=== PATIENT | female | born 1980 | race African-American/Black ===

== ENCOUNTER 2018-06-07 17:28 | Inpatient (IN) | payer MEDICAID ==
[2018-06-07] MEDS ORDERED: NORMAL SALINE INJ/PF 0.9% 10 ML SDV IV ONE (17:55)
[2018-06-07] MEDS ORDERED: METOCLOPRAMIDE HCL INJ/PF 10 MG/2 ML SDV IV ONE (17:55)
[2018-06-07] MEDS ORDERED: KETOROLAC TROMETHAMINE INJ/PF 30 MG/1 ML SDV IV ONE (17:55)
--- NOTE | 2018-06-07 18:01 | ER Document Report ---
ED Medical Screen (RME) - General Chief Complaint: Abdominal Pain Stated Complaint: FEVER/ ABDOMINAL PAIN Time Seen by Provider: 06/07/18 17:54 Mode of Arrival: Ambulatory TRAVEL OUTSIDE OF THE [place] IN LAST 30 DAYS: No - HPI Patient complains to provider of: abd pain Onset: Other - pt with h/o pancreatitis with 2 day h/o abdomoinal pain - Related Data Allergies/Adverse Reactions: No Known Allergies Allergy (Verified 06/07/18 17:30) Past Medical History - Social History Chew tobacco use (# tins/day): No Frequency of alcohol use: Occasional Drug Abuse: None - Past Medical History Cardiac Medical History: Reports: Hx Hypertension Denies: Hx Congestive Heart Failure, Hx Heart Attack, Hx Heart Murmur Pulmonary Medical History: Reports: Hx Asthma, Hx Bronchitis Denies: Hx COPD, Hx Pneumonia, Hx Tuberculosis Neurological Medical History: Denies: Hx Seizures Renal/ Medical History: Denies: Hx End Stage Renal Disease, Hx Kidney Stones, Hx Peritoneal Dialysis GI Medical History: Denies: Hx Cirrhosis, Hx Gastroesophageal Reflux Disease, Hx Hiatal Hernia, Hx Ulcer Musculoskeltal Medical History: Denies Hx Arthritis, Denies Hx Multiple Sclerosis Psychiatric Medical History: Denies: Hx Bipolar Disorder, Hx Depression, Hx Schizophrenia Past Surgical History: Reports: Hx Section. Denies: Hx Pacemaker - Immunizations Hx Diphtheria, Pertussis, Tetanus Vaccination: Yes Physical Exam - Vital signs Vitals: Temp Pulse Resp BP Pulse Ox 97.9 F 121 H 20 150/110 H 99 06/07/18 17:33 06/07/18 17:33 06/07/18 17:33 06/07/18 17:33 06/07/18 17:33 Course - Vital Signs Vital signs: Temp Pulse Resp BP Pulse Ox 97.9 F 121 H 20 150/110 H 99 06/07/18 17:33 06/07/18 17:33 06/07/18 17:33 06/07/18 17:33 06/07/18 17:33 Doctor's Discharge - Discharge Referrals: ZOILA BELL DO [Primary Care Provider] - Follow up as needed
[2018-06-07 18:53] LABS: APPEARANCE,URINE SLIGHTLY-CLOUDY; BILIRUBIN,URINE NEGATIVE (NEGATIVE); COLOR,URINE AMBER; GLUCOSE, URINE 50 mg/dL (NEGATIVE); KETONES,URINE TRACE mg/dL (NEGATIVE); LEUKOCYTE ESTERASE,URINE NEGATIVE (NEGATIVE); NITRITE,URINE NEGATIVE (NEGATIVE); PROTEIN,URINE >=500 mg/dL (NEGATIVE)
[2018-06-07] MEDS ORDERED: NORMAL SALINE 1000 ML 1,000 ML IV ONE ×2 (19:08→19:38)
[2018-06-07 19:11] LABS: ABSOLUTE LYMPHOCYTES (AUTO) 1.1 10^3/uL (0.5-4.7); ABSOLUTE MONOCYTES (AUTO) 0.3 10^3/uL (0.1-1.4); ABSOLUTE NEUT (AUTO) 8.6 10^3/uL (1.7-8.2); BASOPHILS % (AUTO) 0.5 % (0-2); EOSINOPHILS % (AUTO) 0.1 % (0-6); HEMATOCRIT 49.1 % (36.0-47.0); HEMOGLOBIN 17.2 g/dL (12.0-15.5); MEAN CORPUSCULAR HEMOGLOBIN 33.2 pg (27.0-33.4); MEAN CORPUSCULAR VOLUME 95 fl (80-97); MONOCYTES % (AUTO) 3.1 % (3-13); PLATELET COUNT 193 10^3/uL (150-450); RED BLOOD COUNT 5.18 10^6/uL (3.72-5.28); RED CELL DISTRIBUTION WIDTH 12.6 % (11.5-14.0); SEGMENTED NEUTROPHILS % (AUTO) 85.3 % (42-78); TOTAL CELLS COUNTED % (AUTO) 100 %; WHITE BLOOD COUNT 10.1 10^3/uL (4.0-10.5)
[2018-06-07 19:26] LABS: ALANINE AMINOTRANSFERASE 139 U/L (9-52); ALBUMIN 4.8 g/dL (3.5-5.0); ALKALINE PHOSPHATASE 131 U/L (38-126); ASPARTATE AMINO TRANSFERASE 275 U/L (14-36); BILIRUBIN,DIRECT 0.6 mg/dL (0.0-0.4); BLOOD UREA NITROGEN 15 mg/dL (7-20); CALCIUM 9.9 mg/dL (8.4-10.2); GLUCOSE 120 mg/dL (75-110); POTASSIUM 4.1 mmol/L (3.6-5.0); TOTAL PROTEIN 8.6 g/dL (6.3-8.2)
[2018-06-07 19:31] LABS: CARBON DIOXIDE 21 mmol/L (22-30); CHLORIDE 99 mmol/L (98-107); SODIUM 139.8 mmol/L (137-145)
[2018-06-07] MEDS ORDERED: MORPHINE SULFATE 10 MG/ML INJ IV PRN (19:33)
[2018-06-07] MEDS ORDERED: MAG HYDROX/AL HYDROX/SIMETH SUSP 30 ML UDCUP PO ONE (19:34)
[2018-06-07] MEDS ORDERED: FAMOTIDINE 20 MG TABLET PO ONE (19:34)
[2018-06-07] MEDS ORDERED: METOCLOPRAMIDE HCL ORAL SOLN 10 MG/10 ML UDCUP PO ONE (19:34)
[2018-06-07] MEDS ORDERED: LIDOCAINE 2% VISCOUS SOLN 20 ML UDCUP PO ONE (19:34)
[2018-06-07 19:36] LABS: ANION GAP 20 (5-19); LIPASE 3140.4 U/L (23-300)
--- NOTE | 2018-06-07 19:39 | ER Document Report ---
ED General - General Chief Complaint: Abdominal Pain Stated Complaint: FEVER/ ABDOMINAL PAIN Time Seen by Provider: 06/07/18 17:54 Mode of Arrival: Ambulatory Notes: Patient is a 37-year-old female with a previous history of alcoholic pancreatitis who presents with 3 days of epigastric abdominal pain with associated nausea and vomiting. She reports that she has been unable to tolerate oral intake since the onset of her pain. She does describe this is a stabbing, constant, severe pain to her upper abdomen that radiates through to her back. Nothing improves or worsens her pain. She does state that this is similar to when she has had pancreatitis in the past. She has not seen her general doctor regarding today's concerns. Contrary to initial triage assessment the patient denies any history of fever. She states that her last alcoholic beverage was 1 week ago. TRAVEL OUTSIDE OF THE [place] IN LAST 30 DAYS: No - Related Data Allergies/Adverse Reactions: No Known Allergies Allergy (Verified 06/07/18 17:30) Past Medical History - General Information source: Patient - Social History Smoking Status: Never Smoker Chew tobacco use (# tins/day): No Frequency of alcohol use: Occasional Drug Abuse: None Lives with: Spouse/Significant other Family History: Reviewed & Not Pertinent Patient has suicidal ideation: No Patient has homicidal ideation: No - Past Medical History Cardiac Medical History: Reports: Hx Hypertension Denies: Hx Congestive Heart Failure, Hx Heart Attack, Hx Heart Murmur Pulmonary Medical History: Reports: Hx Asthma, Hx Bronchitis Denies: Hx COPD, Hx Pneumonia, Hx Tuberculosis Neurological Medical History: Denies: Hx Seizures Renal/ Medical History: Denies: Hx End Stage Renal Disease, Hx Kidney Stones, Hx Peritoneal Dialysis GI Medical History: Denies: Hx Cirrhosis, Hx Gastroesophageal Reflux Disease, Hx Hiatal Hernia, Hx Ulcer Musculoskeletal Medical History: Denies Hx Arthritis, Denies Hx Multiple Sclerosis Psychiatric Medical History: Denies: Hx Bipolar Disorder, Hx Depression, Hx Schizophrenia Past Surgical History: Reports: Hx Section. Denies: Hx Pacemaker - Immunizations Hx Diphtheria, Pertussis, Tetanus Vaccination: Yes Review of Systems - Review of Systems Notes: Constitutional: Negative for fever. HENT: Negative for sore throat. Eyes: Negative for visual changes. Cardiovascular: Negative for chest pain. Respiratory: Negative for shortness of breath. Gastrointestinal: Positive for abdominal pain and vomiting Genitourinary: Negative for dysuria. Musculoskeletal: Negative for back pain. Skin: Negative for rash. Neurological: Negative for headaches, weakness or numbness. 10 point ROS negative except as marked above and in HPI. Physical Exam - Vital signs Vitals: Temp Pulse Resp BP Pulse Ox 97.9 F 121 H 20 150/110 H 99 06/07/18 17:33 06/07/18 17:33 06/07/18 17:33 06/07/18 17:33 06/07/18 17:33 Interpretation: Tachycardic Notes: PHYSICAL EXAMINATION: GENERAL: Appears moderately uncomfortable but in no acute distress HEAD: Atraumatic, normocephalic. EYES: Pupils equal round and reactive to light, extraocular movements intact, sclera anicteric, conjunctiva are normal. ENT: nares patent, oropharynx clear without exudates. Moderately dry mucous membranes. NECK: Normal range of motion, supple without lymphadenopathy LUNGS: Breath sounds clear to auscultation bilaterally and equal. No wheezes rales or rhonchi. HEART: Regular tachycardia without murmurs ABDOMEN: Soft, diffuse upper abdominal tenderness most focal to the epigastrium , normoactive bowel sounds. No guarding, no rebound. No masses appreciated. EXTREMITIES: Normal range of motion, no pitting or edema. No cyanosis. NEUROLOGICAL: No focal neurological deficits. Moves all extremities spontaneously and on command. PSYCH: Normal mood, normal affect. SKIN: Warm, Dry, normal turgor, no rashes or lesions noted. 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 Her initial vitals showed tachycardia although contrary to triage assessment the patient did not have a fever and she denies this complaint. She does appear to be in significant discomfort time of my assessment. Palpation of her epigastrium results in severe pain although she has minimal tenderness of the right upper quadrant. Will proceed with a right upper quadrant ultrasound to evaluate for the possibility of a gallstone induced pancreatitis. Her labs are not consistent with a choledocholithiasis at this time point as she does have a transaminitis although her bilirubin is effectively normal. Will await ultrasound and then reassess the patient. 06/07/18 21:57 Right upper quadrant ultrasound without any evidence of gallstones to suggest a gallstone induced pancreatitis. Will discuss with the hospitalist for admission. 06/07/18 22:07 I have updated the patient who continues to have pain despite receiving IV narcotics. I have discussed with Dr. Coats who has accepted the patient for admission. - Vital Signs Vital signs: Temp Pulse Resp BP Pulse Ox 98.5 F 93 18 152/95 H 100 06/08/18 00:50 06/08/18 00:50 06/08/18 00:50 06/08/18 00:50 06/08/18 00:50 - Laboratory Result Diagrams: 06/07/18 18:45 06/07/18 18:45 Laboratory results interpreted by me: 06/07/18 06/07/18 06/07/18 18:10 18:45 18:45 Hgb 17.2 H Hct 49.1 H Seg Neutrophils % 85.3 H Lymphocytes % 11.0 L Absolute Neutrophils 8.6 H Carbon Dioxide 21 L Anion Gap 20 H Glucose 120 H Total Bilirubin 2.0 H Direct Bilirubin 0.6 H AST 275 H ALT 139 H Alkaline Phosphatase 131 H Total Protein 8.6 H Lipase 3140.4 H Urine Protein >=500 H Urine Glucose (UA) 50 H Urine Ketones TRACE H Urine Blood SMALL H Urine Urobilinogen 2.0 H - Diagnostic Test Radiology reviewed: Reports reviewed Discharge - Discharge Clinical Impression: Acute pancreatitis Qualifiers: Pancreatitis type: alcohol induced Acute pancreatitis complication: unspecified Qualified Code(s): K85.20 - Alcohol induced acute pancreatitis without necrosis or infection Nausea and vomiting Qualifiers: Vomiting type: unspecified Vomiting Intractability: non-intractable Qualified Code(s): R11.2 - Nausea with vomiting, unspecified Condition: Fair Disposition: ADMITTED INPATIENT Admitting Provider: Hospitalist Unit Admitted: Medical Floor
[2018-06-07 19:40] LABS: VENOUS BLOOD BASE EXCESS -4.2 mmol/L; VENOUS BLOOD HCO3 20.1 mmol/L (20-32); VENOUS BLOOD PCO2 35.2 mmHg (35-63); VENOUS BLOOD PH 7.38 (7.30-7.42)
[2018-06-07] MEDS: MORPHINE SULFATE 10 MG/ML INJ IV PRN ×2 (19:52→22:22)
[2018-06-07 20:24] LABS: ALCOHOL < 10 mg/dL (NONE DETECTED)
--- NOTE | 2018-06-07 21:02 | RADIOLOGY REPORT (SQ) ---
EXAM DESCRIPTION: U/S ABDOMEN LIMITED W/O DOP COMPLETED DATE/TIME: 06/07/2018 8:51 pm REASON FOR STUDY: uper abdominal pain, vomiting COMPARISON: None. TECHNIQUE: Dynamic and static grayscale images acquired of the abdomen and recorded on PACS. Additio bud selected color Doppler and spectral images recorded. LIMITATIONS: None. FINDINGS: PANCREAS: No masses. Visualized pancreatic duct normal caliber. LIVER: No masses. Echotexture normal. LIVER VASCULATURE: Normal directional flow of the main portal vein and hepatic veins. GALLBLADDER: No stones. Normal wall thickness. No pericholecystic fluid. ULTRASOUND-DETECTED CLIFFORD'S SIGN: Negative. INTRAHEPATIC DUCTS AND COMMON DUCT: CBD and intrahepatic ducts normal caliber. No filling defects. INFERIOR VENA CAVA: Normal flow. AORTA: No aneurysm. RIGHT KIDNEY: Normal size. Normal echogenicity. No solid or suspicious masses. No hydronephrosis. No calcifications. PERITONEAL AND RIGHT PLEURAL SPACE: No ascites or effusions. OTHER: No other significant findings. IMPRESSION: NORMAL RIGHT UPPER QUADRANT ULTRASOUND. TECHNICAL DOCUMENTATION: JOB ID: [id number] [employer]- All Rights Reserved Reading location - IP/workstation name: [email or web address]
[2018-06-07] MEDS ORDERED: PROMETHAZINE HCL 25 MG SUPP.RECT PR PRN (22:08)
[2018-06-07] MEDS ORDERED: LORAZEPAM INJ 2 MG/1 ML VIAL IV PRN (22:08)
[2018-06-07] MEDS ORDERED: ACETAMINOPHEN 325 MG TABLET PO PRN (22:08)
[2018-06-07] MEDS ORDERED: MAG HYDROX/AL HYDROX/SIMETH SUSP 30 ML UDCUP PO PRN (22:08)
[2018-06-07] MEDS ORDERED: IPRATROPIUM/ALBUTEROL 0.5-2.5 MG/3 ML AMPUL NEB PRN (22:08)
[2018-06-07] MEDS: NORMAL SALINE 1000 ML 1,000 ML IV SCH (22:53)
[2018-06-08] MEDS: NORMAL SALINE 1000 ML 1,000 ML IV SCH ×2 (00:22→07:56)
[2018-06-08] MEDS: KETOROLAC TROMETHAMINE INJ/PF 30 MG/1 ML SDV IV PRN ×4 (00:22→20:41)
--- NOTE | 2018-06-08 06:03 | PDOC H&P ---
History of Present Illness Admission Date/PCP: 06/07/18 22:25 Patient complains of: Epigastric pain History of Present Illness: OLGA PAUL is a 37 year old female with a past medical history of alcohol-related pancreatitis and hypertension. Patient presents with 24 hours of epigastric pain associated with nausea without vomiting and unable to tolerate p.o. which exacerbate symptoms. Pain is alleviated somewhat by sitting forward. In the emergency room she is found to have a lipase of 3140, elevated LFTs but unremarkable left upper quadrant ultrasound. She receives IV fluids symptomatic management referred to the hospitalist for admission. She admits alcohol use and previous episode 2014. Past Medical History Cardiac Medical History: Reports: Hypertension Denies: Congestive Heart Failure, Myocardial Infarction, Heart Murmur Pulmonary Medical History: Reports: Asthma, Bronchitis Denies: Chronic Obstructive Pulmonary Disease (COPD), Pneumonia, Tuberculosis Neurological Medical History: Denies: Seizures Renal/ Medical History: Denies: End Stage Renal Disease GI Medical History: Denies: Cirrhosis, Gastroesophageal Reflux Disease, Hiatal Hernia Musculoskeltal Medical History: Denies: Arthritis Psychiatric Medical History: Denies: Bipolar Disorder, Depression Hematology: Denies: Anemia, Bleeding Tendencies Past Surgical History Past Surgical History: Reports: Section Denies: Pacemaker Social History Lives with: Spouse/Significant other Smoking Status: Never Smoker Frequency of Alcohol Use: Occasional Hx Recreational Drug Use: No Hx Prescription Drug Abuse: No - Advance Directive Resuscitation Status: Full Code Family History Family History: DM Parental Family History Reviewed: Yes Children Family History Reviewed: Yes Sibling(s) Family History Reviewed.: Yes Medication/Allergy Home Medications: Methyldopa [Aldomet 250 mg Tablet] 500 mg PO DAILY 03/17/16 Vit Calc,Iron,Folic [ Vitamins] 1 tab PO DAILY 03/17/16 Ibuprofen [Motrin 800 mg Tablet] 800 mg PO Q6 #60 tablet 03/22/16 Methyldopa [Aldomet 250 mg Tablet] 500 mg PO DAILY #60 tablet 03/22/16 Oxycodone HCl/Acetaminophen [Percocet 5-325 mg Tablet] 1 tab PO Q4HP PRN #30 tablet 03/22/16 Allergies/Adverse Reactions: No Known Allergies Allergy (Verified 06/07/18 17:30) Review of Systems Constitutional: ABSENT: chills, fever(s), headache(s), weight gain, weight loss Eyes: ABSENT: visual disturbances Ears: ABSENT: hearing changes Cardiovascular: ABSENT: chest pain, dyspnea on exertion, edema, orthropnea, palpitations Respiratory: ABSENT: cough, hemoptysis Gastrointestinal: ABSENT: abdominal pain, constipation, diarrhea, hematemesis, hematochezia, nausea, vomiting Genitourinary: ABSENT: dysuria, hematuria Musculoskeletal: ABSENT: joint swelling Integumentary: ABSENT: rash, wounds Neurological: ABSENT: abnormal gait, abnormal speech, confusion, dizziness, focal weakness, syncope Psychiatric: ABSENT: anxiety, depression, homidical ideation, suicidal ideation Endocrine: ABSENT: cold intolerance, heat intolerance, polydipsia, polyuria Hematologic/Lymphatic: ABSENT: easy bleeding, easy bruising Physical Exam Vital Signs: Temp Pulse Resp BP Pulse Ox 98.4 F 88 15 151/96 H 100 06/08/18 04:50 06/08/18 04:50 06/08/18 04:50 06/08/18 04:50 06/08/18 04:50 Intake & Output 06/06/18 06/07/18 06/08/18 11:59 11:59 11:59 Weight 89.5 kg General appearance: PRESENT: cooperative, mild distress, well-developed, well- nourished. ABSENT: disheveled Head exam: PRESENT: atraumatic, normocephalic Eye exam: PRESENT: conjunctiva pink, EOMI, PERRLA. ABSENT: scleral icterus Ear exam: PRESENT: normal external ear exam Mouth exam: PRESENT: moist, tongue midline Neck exam: ABSENT: carotid bruit, JVD, lymphadenopathy, thyromegaly Respiratory exam: PRESENT: clear to auscultation camila. ABSENT: rales, rhonchi, wheezes Cardiovascular exam: PRESENT: RRR. ABSENT: diastolic murmur, rubs, systolic murmur Pulses: PRESENT: normal dorsalis pedis pul Vascular exam: PRESENT: normal capillary refill GI/Abdominal exam: PRESENT: hyperactive bowel sounds, normal bowel sounds, soft , tenderness. ABSENT: distended, guarding, mass, organolmegaly, rebound Rectal exam: PRESENT: deferred Extremities exam: PRESENT: full ROM. ABSENT: calf tenderness, clubbing, pedal edema Neurological exam: PRESENT: alert, awake, oriented to person, oriented to place , oriented to time, oriented to situation, CN II-XII grossly intact. ABSENT: motor sensory deficit Psychiatric exam: PRESENT: appropriate affect, normal mood. ABSENT: homicidal ideation, suicidal ideation Skin exam: PRESENT: dry, intact, warm. ABSENT: cyanosis, rash Results Impressions: Abdomen Ultrasound 06/07/18 19:34 IMPRESSION: NORMAL RIGHT UPPER QUADRANT ULTRASOUND. Assessment & Plan - Diagnosis (1) Acute pancreatitis Qualifiers: Pancreatitis type: alcohol induced Acute pancreatitis complication: unspecified Qualified Code(s): K85.20 - Alcohol induced acute pancreatitis without necrosis or infection Is this a current diagnosis for this admission?: Yes Plan: Secondary to alcohol use, symptomatic management, IV fluid challenge, bowel rest. Follow-up chemistry (2) LFT elevation Is this a current diagnosis for this admission?: Yes Plan: Likely secondary to #1, right upper quadrant ultrasound unremarkable. Repeat LFTs in 2 weeks (3) Nausea and vomiting Qualifiers: Vomiting type: unspecified Vomiting Intractability: non-intractable Qualified Code(s): R11.2 - Nausea with vomiting, unspecified Is this a current diagnosis for this admission?: Yes Plan: Secondary to #1, systematic management (4) Alcohol abuse Is this a current diagnosis for this admission?: Yes Plan: Education, thiamine and folate, as needed Ativan - Time Time Spent: 50 to 70 Minutes - Inpatient Certification Medical Necessity: Need Close Monitoring Due to Risk of Patient Decompensation
[2018-06-08] MEDS: HEPARIN SOD (PORCINE) 5,000 UNIT/ML 1 ML SYRINGE SUBCUT SCH ×3 (06:30→21:33)
[2018-06-08] MEDS ORDERED: HYDRALAZINE HCL INJ/PF 20 MG/1 ML SDV IV PRN (06:44)
[2018-06-08 06:55] LABS: ABSOLUTE BASOPHILS # (AUTO) 0.1 10^3/uL (0.0-0.2); ABSOLUTE EOSINOPHILS # (AUTO) 0.1 10^3/uL (0.0-0.6); ABSOLUTE LYMPHOCYTES (AUTO) 1.5 10^3/uL (0.5-4.7); ABSOLUTE MONOCYTES (AUTO) 0.4 10^3/uL (0.1-1.4); ABSOLUTE NEUT (AUTO) 5.5 10^3/uL (1.7-8.2); BASOPHILS % (AUTO) 0.7 % (0-2); EOSINOPHILS % (AUTO) 1.8 % (0-6); HEMATOCRIT 38.1 % (36.0-47.0); LYMPHOCYTES % (AUTO) 19.9 % (13-45); MEAN CORPUSCULAR HEMOGLOBIN 33.4 pg (27.0-33.4); MEAN CORPUSCULAR VOLUME 95 fl (80-97); MONOCYTES % (AUTO) 5.8 % (3-13); PLATELET COUNT 118 10^3/uL (150-450); SEGMENTED NEUTROPHILS % (AUTO) 71.8 % (42-78); TOTAL CELLS COUNTED % (AUTO) 100 %; WHITE BLOOD COUNT 7.7 10^3/uL (4.0-10.5)
[2018-06-08 07:01] LABS: ALANINE AMINOTRANSFERASE 81 U/L (9-52); ALBUMIN 3.3 g/dL (3.5-5.0); ALKALINE PHOSPHATASE 83 U/L (38-126); ANION GAP 11 (5-19); ASPARTATE AMINO TRANSFERASE 139 U/L (14-36); BILIRUBIN,DIRECT 0.5 mg/dL (0.0-0.4); BILIRUBIN,TOTAL 1.4 mg/dL (0.2-1.3); BLOOD UREA NITROGEN 8 mg/dL (7-20); CALCIUM 7.8 mg/dL (8.4-10.2); CARBON DIOXIDE 23 mmol/L (22-30); CHLORIDE 108 mmol/L (98-107); CHOLESTEROL 105.48 mg/dL (0-200); GLUCOSE 103 mg/dL (75-110); POTASSIUM 3.7 mmol/L (3.6-5.0); SODIUM 142.3 mmol/L (137-145); TOTAL PROTEIN 6.2 g/dL (6.3-8.2); TRIGLYCERIDES 108 mg/dL (<150)
[2018-06-08 07:02] LABS: HEMOGLOBIN 13.3 g/dL (12.0-15.5)
[2018-06-08 07:15] LABS: DIRECT LDL < 30 mg/dL (<100)
[2018-06-08] MEDS: THIAMINE HCL 100 MG, FOLIC ACID 1 MG in NORMAL SALINE 250 ML IV SCH (10:36)
[2018-06-08] MEDS ORDERED: LISINOPRIL 10 MG TABLET PO ONE (17:30)
--- NOTE | 2018-06-08 21:17 | PDOC PROGRESS REPORT ---
Subjective Progress Note for:: 06/08/18 Subjective:: 37 y.o. F with a PMH ETOH pancreatitis and HTN presented to [facility] with abdominal pain. She admits to drinking 3 glasses of wine approximately 1 week prior to arrival. Patient seen this morning on rounds. She is resting comfortably in bed on room air. The patient is A&O x 3 and able to answer all questions appropriately without pause. She endorses very mild R/L upper abdominal pain. Denies nausea or vomiting. Upon assessment, the patient's abdomen is TTP in the epigastric area. (+) bowel sounds. S1S2. Lungs clear to auscultation. Reason For Visit: ALCOHOLIC PANCREATITIS Physical Exam Vital Signs: Temp Pulse Resp BP Pulse Ox 99.4 F 90 19 161/93 H 100 06/08/18 19:44 06/08/18 19:44 06/08/18 19:44 06/08/18 19:44 06/08/18 19:44 Intake & Output 06/07/18 06/08/18 06/09/18 06:59 06:59 06:59 Intake Total 1500 2180 Output Total 900 Balance 1500 1280 Weight 89.5 kg General appearance: PRESENT: no acute distress Eye exam: PRESENT: conjunctiva pink, PERRLA Mouth exam: PRESENT: moist Neck exam: PRESENT: full ROM Respiratory exam: PRESENT: clear to auscultation camila, symmetrical, unlabored Cardiovascular exam: PRESENT: +S1, +S2 Pulses: PRESENT: normal radial pulses, normal dorsalis pedis pul GI/Abdominal exam: PRESENT: normal bowel sounds, soft, tenderness. ABSENT: distended, rigid Rectal exam: PRESENT: deferred Extremities exam: PRESENT: full ROM Musculoskeletal exam: PRESENT: ambulatory, full ROM Neurological exam: PRESENT: alert, awake, oriented to person, oriented to place , oriented to time, oriented to situation Psychiatric exam: PRESENT: appropriate affect Skin exam: PRESENT: dry, intact, normal color Results Laboratory Results: 06/08/18 05:50 06/08/18 05:50 06/08/18 06/08/18 05:50 05:50 WBC 7.7 RBC 4.00 Hgb 13.3 D Hct 38.1 MCV 95 MCH 33.4 MCHC 35.0 RDW 13.0 Plt Count 118 L Seg Neutrophils % 71.8 Lymphocytes % 19.9 Monocytes % 5.8 Eosinophils % 1.8 Basophils % 0.7 Absolute Neutrophils 5.5 Absolute Lymphocytes 1.5 Absolute Monocytes 0.4 Absolute Eosinophils 0.1 Absolute Basophils 0.1 Sodium 142.3 Potassium 3.7 Chloride 108 H Carbon Dioxide 23 Anion Gap 11 BUN 8 Creatinine 0.65 Est GFR ( Amer) > 60 Est GFR (Non-Af Amer) > 60 Glucose 103 Calcium 7.8 L Total Bilirubin 1.4 H AST 139 H ALT 81 H Alkaline Phosphatase 83 Total Protein 6.2 L Albumin 3.3 L Triglycerides 108 Cholesterol 105.48 LDL Cholesterol Direct < 30 VLDL Cholesterol 22.0 HDL Cholesterol 53 Impressions: Abdomen Ultrasound 06/07/18 19:34 IMPRESSION: NORMAL RIGHT UPPER QUADRANT ULTRASOUND. Status: Imported from PACS Assessment & Plan - Diagnosis (1) Acute pancreatitis Qualifiers: Pancreatitis type: alcohol induced Acute pancreatitis complication: unspecified Qualified Code(s): K85.20 - Alcohol induced acute pancreatitis without necrosis or infection Is this a current diagnosis for this admission?: Yes Plan: History of pancreatitis secondary to alcohol use Admits to drinking 1 glass of wine every other day. Recently had 3 glasses of wine in one sitting Initial Lipase 3140, plan to recheck in AM Patient reports she is hungry, will advance diet to clear liquids today Tylenol, toradol, morphine for pain (2) LFT elevation Is this a current diagnosis for this admission?: Yes Plan: Tramsaminitis Improved today No evidence of liver failure Abdominal US normal (3) Alcohol abuse Is this a current diagnosis for this admission?: Yes Plan: Patient admits to drinking 1 glass of wine every other night. States she thinks her flare up is related to drinking 3 glasses of wine in one sitting approx. 1 week prior to admission Patient expresses strong interest in giving up ETOH in order to avoid hospitalization Continue Thiamine and Folic Acid (4) HTN (hypertension) Qualifiers: Hypertension type: essential hypertension Qualified Code(s): I10 - Essential (primary) hypertension Is this a current diagnosis for this admission?: Yes Plan: patient endorses history of HTN, states she was prescribed lisinopril but has not started taking Initiate Lisinopril 10mg PO daily IV Hydralazine 10mg PRN for SBP > 170 - Time Time Spent with patient: 15-24 minutes Medications reviewed and adjusted accordingly: Yes Anticipated discharge: Home Within: within 48 hours - Inpatient Certification Based on my medical assessment, after consideration of the patient's comorbidities, presenting symptoms, or acuity I expect that the services needed warrant INPATIENT care.: Yes I certify that my determination is in accordance with my understanding of Medicare's requirements for reasonable and necessary INPATIENT services [42 CFR 412.3e].: Yes Medical Necessity: Risk of Complication if Not Cared For in Hospital - Plan Summary Plan Summary: CONTINUE THIAMINE AND FOLATE. ADVANCE DIET TODAY. INITIATE ANTIHYPERTENSIVE MEDICATION. IF PATIENT ABLE TO TOLERATE DIET, PLAN TO DISCHARGE HOME TOMORROW.
[2018-06-09] MEDS: KETOROLAC TROMETHAMINE INJ/PF 30 MG/1 ML SDV IV PRN ×4 (02:12→20:21)
[2018-06-09] MEDS: HEPARIN SOD (PORCINE) 5,000 UNIT/ML 1 ML SYRINGE SUBCUT SCH ×3 (05:14→21:49)
[2018-06-09 05:27] LABS: HEMATOCRIT 36.8 % (36.0-47.0); MEAN CORPUSCULAR HEMOGLOBIN 33.3 pg (27.0-33.4); MEAN CORPUSCULAR HGB CONC 35.2 g/dL (32.0-36.0); MEAN CORPUSCULAR VOLUME 95 fl (80-97); PLATELET COUNT 100 10^3/uL (150-450); RED BLOOD COUNT 3.89 10^6/uL (3.72-5.28); WHITE BLOOD COUNT 7.7 10^3/uL (4.0-10.5)
[2018-06-09 05:40] LABS: ANION GAP 15 (5-19); BLOOD UREA NITROGEN 4 mg/dL (7-20); CALCIUM 8.5 mg/dL (8.4-10.2); CARBON DIOXIDE 20 mmol/L (22-30); CHLORIDE 107 mmol/L (98-107); GLUCOSE 81 mg/dL (75-110); PHOSPHORUS 2.8 mg/dL (2.5-4.5); POTASSIUM 3.3 mmol/L (3.6-5.0); SODIUM 141.8 mmol/L (137-145)
[2018-06-09 05:51] LABS: LIPASE 3888.7 U/L (23-300)
[2018-06-09] MEDS ORDERED: LISINOPRIL 10 MG TABLET PO SCH ×2 (10:00→13:47)
[2018-06-09] MEDS: THIAMINE HCL 100 MG, FOLIC ACID 1 MG in NORMAL SALINE 250 ML IV SCH (11:14)
[2018-06-09 13:56] LABS: ALANINE AMINOTRANSFERASE 64 U/L (9-52); ALBUMIN 3.3 g/dL (3.5-5.0); ALKALINE PHOSPHATASE 78 U/L (38-126); ASPARTATE AMINO TRANSFERASE 81 U/L (14-36); BILIRUBIN,DIRECT 0.5 mg/dL (0.0-0.4); TOTAL PROTEIN 6.2 g/dL (6.3-8.2)
[2018-06-09] MEDS ORDERED: LISINOPRIL 10 MG TABLET PO ONE (14:45)
[2018-06-09] MEDS: CYCLOBENZAPRINE HCL 10 MG TABLET PO PRN (15:04)
[2018-06-09] MEDS ORDERED: LIDOCAINE 5% (700 MG) TRANSDERMAL ADH..PATCH TP ONE (18:30)
[2018-06-09] MEDS ORDERED: LIDOCAINE 5% (700 MG) TRANSDERMAL ADH..PATCH ONE (19:04)
[2018-06-09 20:50] LABS: ALANINE AMINOTRANSFERASE 57 U/L (9-52); ALBUMIN 3.7 g/dL (3.5-5.0); ALKALINE PHOSPHATASE 89 U/L (38-126); ASPARTATE AMINO TRANSFERASE 77 U/L (14-36); BILIRUBIN,DIRECT 0.5 mg/dL (0.0-0.4); BILIRUBIN,TOTAL 1.1 mg/dL (0.2-1.3); TOTAL PROTEIN 6.6 g/dL (6.3-8.2)
[2018-06-09 20:58] LABS: LIPASE 3343.1 U/L (23-300)
[2018-06-09] MEDS: MORPHINE SULFATE 10 MG/ML INJ IV PRN (23:44)
[2018-06-10] MEDS: CYCLOBENZAPRINE HCL 10 MG TABLET PO PRN (03:06)
[2018-06-10] MEDS: KETOROLAC TROMETHAMINE INJ/PF 30 MG/1 ML SDV IV PRN (03:07)
[2018-06-10] MEDS: HEPARIN SOD (PORCINE) 5,000 UNIT/ML 1 ML SYRINGE SUBCUT SCH (04:05)
[2018-06-10 08:39] VITALS: BP 149/96
[2018-06-10] MEDS ORDERED: KETOROLAC TROMETHAMINE INJ/PF 30 MG/1 ML SDV IV PRN (09:07)
[2018-06-10] MEDS ORDERED: LIDOCAINE 5% (700 MG) TRANSDERMAL ADH..PATCH TP SCH (10:00)
--- NOTE | 2018-06-12 17:23 | PDOC DISCHARGE SUMMARY ---
<TRASHOSHANA Khurram - Last Filed: 06/12/18 17:18> General - Admit/Disc Date/PCP Admission Date/Primary Care Provider: 06/07/18 22:25 Discharge Date: 06/09/18 - Discharge Diagnosis (1) Acute pancreatitis Is this a current diagnosis for this admission?: Yes (2) LFT elevation Is this a current diagnosis for this admission?: Yes (3) Alcohol abuse Is this a current diagnosis for this admission?: Yes (4) HTN (hypertension) Is this a current diagnosis for this admission?: Yes - Additional Information Resuscitation Status: Full Code Discharge Diet: As Tolerated Discharge Activity: Activity As Tolerated Prescriptions: Cyclobenzaprine HCl [Flexeril 10 mg Tablet] 5 mg PO Q8HP PRN #15 tablet PRN Reason: Lidocaine [Lidoderm 5% (700 mg) Transdermal Patch] 1 patch TP DAILY #5 adh..patch Lisinopril [Prinivil 10 mg Tablet] 20 mg PO DAILY #30 tablet Home Medications: Cyclobenzaprine HCl [Flexeril 10 mg Tablet] 5 mg PO Q8HP PRN #15 tablet Lidocaine [Lidoderm 5% (700 mg) Transdermal Patch] 1 patch TP DAILY #5 adh..patch 06/10/18 Lisinopril [Prinivil 10 mg Tablet] 20 mg PO DAILY #30 tablet 06/10/18 History of Present Illness History of Present Illness: Per Dr. Coats: OLGA PAUL is a 37 year old female with a past medical history of alcohol-related pancreatitis and hypertension. Patient presents with 24 hours of epigastric pain associated with nausea without vomiting and unable to tolerate p.o. which exacerbate symptoms. Pain is alleviated somewhat by sitting forward. In the emergency room she is found to have a lipase of 3140, elevated LFTs but unremarkable left upper quadrant ultrasound. She receives IV fluids symptomatic management referred to the hospitalist for admission. She admits alcohol use and previous episode 2014. Hospital Course Hospital Course: 37 y.o. F admitted for pancreatitis. The patient admits to a history of pancreatitis secondary to alcohol use requiring hospitalization approximately 3 years ago. No acute flare ups since that time. The patient admits to currently drinking 1 glass of wine every other day. Approximately 1 week prior to this admission, the patient admits to drinking 3 glasses of wine in one sitting. Abdominal US completed while in ED, results were normal. Initial Lipase 3140. The patient was treated with PRN morphine, toradol and tyenol for pain. She was started on daily thiamine and folate due to her frequent ETOH use. The patient's lipase increased to 3800 the following day but the patient did not experience worsening symptoms. In fact, her abdominal pain improved and the patient reported that she was hungry. Her diet was advanced to clear liquids, which the patient tolerated. When she advanced to a regular diet, she experienced some slight postprandial nausea, but this subsided within 12 hours. The patient's blood pressure was somewhat elevated while she was inpatient, her SBP often ranging from 140-160. The patient stated that her PMD gave her a prescription for lisinopril but she admits she never got it filled. The patient was started on PO lisinopril, which helped manage her HTN. The patient began complaining of lower lumbar pain during day 2 of her hospital admission. The pain was located in the lower lumbar region and reproducible with palpation. There was no radiation of the patient's pain and she reports she was able to ambulate without difficulty despite her back pain. Denies episodes of incontinence. The patient remained afebrile and nontoxic appearing. Her back pain is likely musculoskeletal and far less likely to be any other pathology like a spinal abscess. No imaging was preformed. She was prescribed PRN flexeril and a lidocaine patch. After approximately 48 hours in the hospital, the patient was deemed safe for discharge. She was not exhibiting signs of ETOH withdrawal, her abdominal pain had subsided, she was tolerating solid food, and her blood pressure was well controlled. The patient was advised to stop drinking and to continue taking the lisinopril for her HTN. Additionally, the patient was instructed to follow up with her PMD within 1-2 weeks of discharge from the hospital. The patient stated full understanding of her instructions. Physical Exam Vital Signs: Temp Pulse Resp BP Pulse Ox 98 F 104 H 14 149/96 H 100 06/10/18 10:31 06/10/18 10:31 06/10/18 10:31 06/10/18 10:31 06/10/18 10:31 Results Laboratory Results: 06/09/18 03:57 06/09/18 03:57 Impressions: Abdomen Ultrasound 06/07/18 19:34 IMPRESSION: NORMAL RIGHT UPPER QUADRANT ULTRASOUND. Status: Imported from PACS Qualifiers - * PATIENT BEING DISCHARGED WITH ANY OF THE FOLLOWING DIAGNOSIS: No <DENNIS MORLEY - Last Filed: 06/14/18 08:29> General - Admit/Disc Date/PCP Admission Date/Primary Care Provider: 06/07/18 22:25 History of Present Illness History of Present Illness: OLGA PAUL is a 37 year old female Physical Exam Vital Signs: Temp Pulse Resp BP Pulse Ox 98 F 104 H 14 149/96 H 100 06/10/18 10:31 06/10/18 10:31 06/10/18 10:31 06/10/18 10:31 06/10/18 10:31 Results Laboratory Results: 06/09/18 03:57 06/09/18 03:57 Impressions: Abdomen Ultrasound 06/07/18 19:34 IMPRESSION: NORMAL RIGHT UPPER QUADRANT ULTRASOUND. Provider Note Provider Note: I have discussed this patient with CRYSTAL Perdomo. I am in agreement with her evaluation and plan.
== END 2018-06-10 11:35 | disposition home or self-care (01) | DRG 440 ==
LOC: ER 17:28 → EH 22:25 → 5 06-08 00:13
PROVIDERS: ADMIT Internal Medicine; ATTEND Internal Medicine
DX: K85.20 Alcohol induced acute pancreatitis without necrosis or infection (principal); I10 Essential (primary) hypertension; R94.5 Abnormal results of liver function studies; Z79.899 Other long term (current) drug therapy; Z83.3 Family history of diabetes mellitus
CPT/HCPCS: 36415; 76705; 80048; 80053; 80061; 80076; 80307; 81001; 81025; 82803; 83605; 83690; 83735; 84100; 85025; 85027; 87040; 96361; 96374; 96375; 96376; 99285; J0360; J1644; J1885; J2270; J2765; J3411; J3490; J7030; J7050

== ENCOUNTER 2018-10-25 12:24 | Emergency (ER) | payer MEDICAID ==
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
[2018-10-25 14:38] VITALS: BP 143/92
== END 2018-10-25 14:38 | disposition home or self-care (01) ==
LOC: ER 12:24
DX: T78.40XA Allergy, unspecified, initial encounter (principal); X58.XXXA Exposure to other specified factors, initial encounter
CPT/HCPCS: 99283